=== PATIENT | female | born 1945 ===

== ENCOUNTER 2017-05-20 00:10 | Inpatient (IN) | payer MEDICAID ==
[2017-05-20] MEDS ORDERED: Morphine 4 MG/ML VIAL IV ONE (00:58)
--- NOTE | 2017-05-20 00:58 | C.PDOC ---
History Of Present Illness 71 year old female presents to the ED c/o sudden onset abdominal pain, vomit that started today at 19:00. Patient states she was feeling fine before and the pain suddenly came. Patient had an appendectomy performed in the past. Patient denies fever, chills, back pain, recent travel, sick contacts. Chief Complaint (Nursing): Abdominal Pain History Per: Patient History/Exam Limitations: no limitations Onset/Duration Of Symptoms: Days Current Symptoms Are (Timing): Still Present Severity: Moderate Location Of Pain/Discomfort: RUQ Radiation Of Pain To:: None Quality Of Discomfort: "Pain" Associated Symptoms: Vomiting Exacerbating Factors: None Alleviating Factors: None Recent travel outside of the [place]: No Additional History Per: Patient Abnormal Vaginal Bleeding: No Past Medical History Reviewed: Historical Data, Nursing Documentation, Vital Signs Vital Signs: Last Vital Signs Temp 99 F 05/20/17 02:50 Pulse 106 H 05/20/17 04:52 Resp 18 05/20/17 04:52 BP 113/61 05/20/17 04:52 Pulse Ox 98 05/20/17 04:52 - Medical History PMH: HTN, Hypercholesterolemia Surgical History: Appendectomy Family History: States: Unknown Family Hx - Social History Hx Alcohol Use: No Hx Substance Use: No Review Of Systems Constitutional: Negative for: Fever, Chills Cardiovascular: Negative for: Chest Pain Respiratory: Negative for: Cough, Shortness of Breath Gastrointestinal: Positive for: Vomiting, Abdominal Pain Skin: Negative for: Rash Neurological: Negative for: Weakness, Numbness Physical Exam - Physical Exam Appears: Non-toxic, No Acute Distress Skin: Normal Color, Warm, Dry Head: Atraumatic, Normacephalic Eye(s): bilateral: Normal Inspection Nose: No Discharge Oral Mucosa: Moist Neck: Normal ROM, Supple Chest: Symmetrical Cardiovascular: Rhythm Regular, No Murmur Respiratory: Normal Breath Sounds, No Rales, No Rhonchi, No Wheezing Gastrointestinal/Abdominal: Soft, Tenderness (RUQ, + Kerr's), No Guarding, No Rebound Extremity: Normal ROM, No Tenderness, No Swelling Neurological/Psych: Oriented x3 Gait: Steady ED Course And Treatment - Laboratory Results Result Diagrams: 05/20/17 01:01 05/20/17 01:01 O2 Sat by Pulse Oximetry: 100 (On RA) Pulse Ox Interpretation: Normal - CT Scan/US Abdomen US Other Rad Studies (CT/US): Read By Radiologist, Radiology Report Reviewed CT/US Interpretation: EXAM: US Abdomen Limited, Right Upper Quadrant. CLINICAL HISTORY: 71 years, female; Pain; Abdominal pain; Generalized; Prior surgery; Surgery date: 6+ months;. Surgery type: Appendix removed; Additional info: Ruq. TECHNIQUE: Real-time ultrasound of the right upper quadrant with image documentation. COMPARISON: No relevant prior studies available. FINDINGS: Liver: Enlarged liver measuring up to 22.7 cm. Echogenicity of the liver is increased suggestive of. hepatic steatosis. No intrahepatic bile duct dilation. Gallbladder: Gallbladder mildly distended. No gallstones or biliary sludge. Gallbladder wall. measures a normal 0.27 cm in thickness. Sonographic Kerr's sign negative. Common bile duct: Common bile duct measures up to 0.68 cm likely normal for patient age. No. stones. Pancreas: Visualized pancreas unremarkable. Prominent pancreatic duct measuring up to 0.33. cm. Right kidney : Right kidney measures 11.4 x 4.0 x 6.3 cm. No stones. No hydronephrosis. IMPRESSION: 1. No acute findings. 2. Hepatomegaly with increased echogenicity of the liver suggestive of hepatic steatosis. 3. Mild gallbladder distention without evidence of gallstones or biliary sludge. 4. Prominent pancreatic duct. Thank you for allowing us to participate in the care of your patient. Dictated and Authenticated by: Nimo Laughlin MD. 05/20/2017 3:31 AM Eastern Time ([place] & [place]) CT abd/pelvis Other Rad Studies (CT/US): Read By Radiologist, Radiology Report Reviewed CT/US Interpretation: EXAM: CT Abdomen and Pelvis With Intravenous Contrast. EXAM DATE/TIME: 05/20/2017 2:45 AM. CLINICAL HISTORY: 71 years old, female; Pain; Abdominal pain. TECHNIQUE: Axial computed tomography images of the abdomen and pelvis with intravenous contrast. All CT. scans at this facility use one or more dose reduction techniques, viz.: automated exposure control;. ma/kV adjustment per patient size (including targeted exams where dose is matched to indication; i.e. head); or iterative reconstruction technique. Coronal and sagittal reformatted images were created and reviewed. CONTRAST: 100 mL of administered intravenously. COMPARISON: Prior right upper quadrant ultrasound of 2017-05-20 02:14. FINDINGS: LIMITATIONS: Mild streak/motion artifact. LOWER THORAX: Small hiatal hernia. ABDOMEN:LIVER: Fatty infiltration of the liver. 1.7 cm low density liver lesion, most likely a cyst. Hepatomegaly, with the liver measuring 25 cm in length. GALLBLADDER AND BILE DUCTS: No CT evidence of acute cholecystitis. No evidence of. significant biliary ductal dilatation for age. PANCREAS: No CT evidence of acute pancreatitis. SPLEEN: No acute abnormality of the spleen identified. ADRENALS : No acute abnormality of the adrenal glands identified. KIDNEYS AND URETERS: No acute abnormality of the kidneys identified. No evidence of. significant hydrouereteronephrosis. STOMACH AND BOWEL: No acute abnormality of the stomach , small bowel or colon identified. No. evidence of bowel obstruction. APPENDIX : Normal appendix is not seen, however, there are no significant inflammatory changes. visualized in the expected location of the appendix to suggest appendicitis. PELVIS: BLADDER: No acute abnormality of the bladder identified. REPRODUCTIVE:No acute abnormality of the reproductive organs is seen. No evidence of large. adnexal masses. ABDOMEN and PELVIS: INTRAPERITONEAL SPACE: No evidence of free intraperitoneal air or fluid. BONES/ JOINTS: Osteoarthritic changes in the hips bilaterally, moderate to severe on the left. Uterus is surgically absent. SOFT TISSUES: No acute abnormality of the visualized soft tissues is seen. VASCULATURE: No evidence of abdominal aortic aneurysm. No evidence of periaortic. hemorrhage. LYMPH NODES: No evidence of diffuse lymphadenopathy. IMPRESSION: - No evidence of significant acute process. Appendix is not seen, however. - Enlarged, fatty liver. - See above for remaining findings. Thank you for allowing us to participate in the care of your patient. Dictated and Authenticated by: Ethel Yang MD. 05/20 4:04 AM Eastern Time ([place] & [place]) Medical Decision Making Medical Decision Making: Impression: cholelithiasis Plan: * Labs * Dilaudid 1 mg IVP * Morphine 4 mg IVP * Abdomen US Disposition - Disposition Disposition: HOSPITALIZED Disposition Time: 05:00 Condition: FAIR Forms: [facility] (Guinean) - Clinical Impression Clinical Impression: Abdominal pain - Scribe Statement The provider has reviewed the documentation as recorded by the Scribe Aubrey Berrios All medical record entries made by the Scribe were at my direction and personally dictated by me. I have reviewed the chart and agree that the record accurately reflects my personal performance of the history, physical exam, medical decision making, and the department course for this patient. I have also personally directed, reviewed, and agree with the discharge instructions and disposition.
[2017-05-20] MEDS ORDERED: Morphine 4 MG/ML VIAL ONE (01:03)
[2017-05-20 01:05] LABS: BASO % 0.1 % (0.0-2.0); EOS # 0.2 K/uL (0.0-0.7); HEMOGLOBIN 14.5 g/dL (11.0-16.0); LYMPH # 1.6 K/uL (1.0-4.3); LYMPH % 6.8 % (20.0-40.0); MEAN CELL VOLUME 90.9 fL (81.0-99.0); MEAN CORPUSCULAR HEMOGLOBIN 30.1 pg (27.0-31.0); MEAN CORPUSCULAR HGB CONC 33.1 g/dL (33.0-37.0); MEAN PLATELET VOLUME 12.6 fL (7.2-11.7); MONO # 1.3 K/uL (0.0-0.8); MONO % 5.3 % (0.0-10.0); NEUT # 20.5 K/uL (1.8-7.0); NEUT % 86.8 % (50.0-75.0); PLATELET COUNT 245 K/uL (130-400); RED CELL DISTRIBUTION WIDTH 13.4 % (11.5-14.5); WHITE BLOOD COUNT 23.6 K/uL (4.8-10.8)
[2017-05-20 01:13] LABS: INR 0.9; PROTHROMBIN TIME 10.5 SECONDS (9.7-12.2)
[2017-05-20] MEDS ORDERED: HYDROmorphone 1 mg/ml ISec IVP STA (01:17)
[2017-05-20] MEDS ORDERED: HYDROmorphone 1 mg/ml ISec ONE (01:23)
[2017-05-20 01:37] LABS: ALB/GLOB RATIO 1.2 (1.0-2.1); ALBUMIN 4.7 g/dL (3.5-5.0); ALT/SGPT 69 U/L (9-52); AST/SGOT 54 U/L (14-36); BLOOD UREA NITROGEN 20 mg/dL (7-17); CALCIUM 10.2 mg/dl (8.6-10.4); GFR AFRICAN-AMERICAN > 60; GFR NON-AFRICAN AMERICAN > 60; LIPASE 108 U/L (23-300)
[2017-05-20 01:38] LABS: BANDS 7 % (0-2); LYMPHOCYTE 5 % (20-40); MONOCYTE 4 % (0-10); NEUTROPHIL 84 % (50-75); PLATELET ESTIMATE NORMAL (NORMAL); TOTAL CELLS COUNTED 100
[2017-05-20] MEDS ORDERED: Piperacillin/Tazobact 3.375 GM in Sodium Chloride 100 ML IVPB STA (02:00)
[2017-05-20] MEDS ORDERED: Piperacill/Tazo 3.375gm in Dex 3.375 GM/50 ML BAG IVPB STA (02:12)
[2017-05-20] MEDS ORDERED: Iodixanol 320 MG/ML 100 ML BOTTLE IV ONE (02:53)
--- NOTE | 2017-05-20 04:05 | CT ---
EXAM: CT Abdomen and Pelvis With Intravenous Contrast EXAM DATE/TIME: 05/20/2017 2:45 AM CLINICAL HISTORY: 71 years old, female; Pain; Abdominal pain TECHNIQUE: Axial computed tomography images of the abdomen and pelvis with intravenous contrast. All CT scans at this facility use one or more dose reduction techniques, viz.: automated exposure control; ma/kV adjustment per patient size (including targeted exams where dose is matched to indication; i.e. head); or iterative reconstruction technique. Coronal and sagittal reformatted images were created and reviewed. CONTRAST: 100 mL of [id number] administered intravenously. COMPARISON: Prior right upper quadrant ultrasound of 2017-05-20 02:14 FINDINGS: LIMITATIONS: Mild streak/motion artifact. LOWER THORAX: Small hiatal hernia. ABDOMEN: LIVER: Fatty infiltration of the liver. 1.7 cm low density liver lesion, most likely a cyst. Hepatomegaly, with the liver measuring 25 cm in length. GALLBLADDER AND BILE DUCTS: No CT evidence of acute cholecystitis. No evidence of significant biliary ductal dilatation for age. PANCREAS: No CT evidence of acute pancreatitis. SPLEEN: No acute abnormality of the spleen identified. ADRENALS: No acute abnormality of the adrenal glands identified. KIDNEYS AND URETERS: No acute abnormality of the kidneys identified. No evidence of significant hydrouereteronephrosis. STOMACH AND BOWEL: No acute abnormality of the stomach, small bowel or colon identified. No evidence of bowel obstruction. APPENDIX: Normal appendix is not seen, however, there are no significant inflammatory changes visualized in the expected location of the appendix to suggest appendicitis. PELVIS: BLADDER: No acute abnormality of the bladder identified. REPRODUCTIVE:No acute abnormality of the reproductive organs is seen. No evidence of large adnexal masses. ABDOMEN and PELVIS: INTRAPERITONEAL SPACE: No evidence of free intraperitoneal air or fluid. BONES/JOINTS: Osteoarthritic changes in the hips bilaterally, moderate to severe on the left. Uterus is surgically absent. SOFT TISSUES: No acute abnormality of the visualized soft tissues is seen. VASCULATURE: No evidence of abdominal aortic aneurysm. No evidence of periaortic hemorrhage. LYMPH NODES: No evidence of diffuse lymphadenopathy. IMPRESSION: - No evidence of significant acute process. Appendix is not seen, however. - Enlarged, fatty liver. - See above for remaining findings.
[2017-05-20] MEDS ORDERED: Lactated Ringer's 1,000 ML IV ONE (07:16)
--- NOTE | 2017-05-20 07:24 | CP.PCM.CON ---
<KwameLiss - Last Filed: 05/20/17 07:18> History of Present Illness - History of Present Illness History of Present Illness: Surgery Consult: Dr. Bridges Pt is a 71F with PMHx significant for HTN who presented to with complaints of abdominal pain accompanied by N/V. Pt states that she started having abdominal pain yesterday with several episodes of NBNB vomiting & diarrhea. Abdominal pain is mostly epigastric and worse from the pressure due to the vomiting. She denies having had an episode like this in the past. She denies any sick contacts or eating out. Denies fevers, chills, chest pain or SOB. A CT abdomen/pelvis was done in the ER and shows no significant findings. Surgery called to evaluate for abdominal pain. PMH: HTN PSH: appendectomy, hysterectomy ALL: NKDA Social: denies smoking/eTOH Review of Systems - Review of Systems All systems: reviewed and no additional remarkable complaints except (as per HPI ) Past Patient History - Past Social History Smoking Status: Light Smoker < 10 Cigarettes Daily - CARDIAC Hx Hypercholesterolemia: Yes Hx Hypertension: Yes - PSYCHIATRIC Hx Substance Use: No - SURGICAL HISTORY Hx Appendectomy: Yes Meds Allergies/Adverse Reactions: Allergies Allergy/AdvReac Type Severity Reaction Status Date / Time No Known Allergies Allergy Verified 05/20/17 00:16 - Medications Medications: Current Medications Lactated Ringer's (Lactated Ringer's) 1,000 mls @ 100 mls/hr IV .Q10H BASHIR Lactated Ringer's (Lactated Ringer's) 1,000 mls @ 500 mls/hr IV .Q2H ONE Stop: 05/20/17 09:15 Morphine Sulfate (Morphine) 2 mg IVP Q4 PRN PRN Reason: Pain, moderate (4-7) Physical Exam - Constitutional Appears: No Acute Distress - Head Exam Head Exam: ATRAUMATIC, NORMOCEPHALIC - Eye Exam Eye Exam: Normal appearance - Respiratory Exam Respiratory Exam: NORMAL BREATHING PATTERN - Cardiovascular Exam Cardiovascular Exam: RRR - GI/Abdominal Exam GI & Abdominal Exam: Soft, Tenderness (epigastric ). absent: Distended, Guarding, Rebound - Neurological Exam Neurological exam: Alert, Oriented x3 - Skin Skin Exam: Dry, Warm Results - Vital Signs Recent Vital Signs: Last Vital Signs Temp 99.3 F 05/20/17 06:44 Pulse 89 05/20/17 06:44 Resp 18 05/20/17 06:44 BP 129/75 05/20/17 06:44 Pulse Ox 98 05/20/17 06:44 - Labs Result Diagrams: 05/20/17 01:01 05/20/17 01:01 Labs: Laboratory Results - last 24 hr 05/20/17 05/20/17 05/20/17 01:01 01:01 01:01 WBC 23.6 H RBC 4.80 Hgb 14.5 Hct 43.6 MCV 90.9 MCH 30.1 MCHC 33.1 RDW 13.4 Plt Count 245 MPV 12.6 H Neut % (Auto) 86.8 H Lymph % (Auto) 6.8 L [place] % (Auto) 5.3 Eos % (Auto) 1.0 Baso % (Auto) 0.1 Neut # (Auto) 20.5 H Lymph # (Auto) 1.6 [place] # (Auto) 1.3 H Eos # (Auto) 0.2 Baso # (Auto) 0.0 Neutrophils % (Manual) 84 H Band Neutrophils % 7 H Lymphocytes % (Manual) 5 L Monocytes % (Manual) 4 Platelet Estimate Normal PT 10.5 INR 0.9 APTT 25 Sodium 144 Potassium 3.6 Chloride 102 Carbon Dioxide 21 L Anion Gap 24 H BUN 20 H Creatinine 0.9 Est GFR ( Amer) > 60 Est GFR (Non-Af Amer) > 60 Random Glucose 222 H Calcium 10.2 Total Bilirubin 0.6 AST 54 H ALT 69 H Alkaline Phosphatase 121 Total Protein 8.8 H Albumin 4.7 Globulin 4.0 H Albumin/Globulin Ratio 1.2 Lipase 108 - Imaging and Cardiology CT scan - abdomen Status: Image reviewed by me, Report reviewed by me Assessment & Plan - Assessment and Plan (Free Text) Assessment: 71F with abdominal pain Plan: - repeat labs this AM - IVF hydration - Start CLD and monitor tolerance - no surgical intervention at this time - d/w Dr. Yuliana Puente, PGY-3 <Tom Bridges - Last Filed: 05/21/17 21:00> Meds - Medications Medications: Current Medications Enoxaparin Sodium (Lovenox) 40 mg SC DAILY BASHIR Last Admin: 05/21/17 09:21 Dose: 40 mg Lactated Ringer's (Lactated Ringer's) 1,000 mls @ 100 mls/hr IV .Q10H [facility] Last Admin: 05/21/17 06:33 Dose: 100 mls/hr Piperacillin Sod/Tazobactam (Sod 3.375 gm/ Sodium Chloride) 100 mls @ 200 mls/ hr IVPB Q8H BASHIR PRN Reason: Protocol Last Admin: 05/21/17 17:49 Dose: 200 mls/hr Morphine Sulfate (Morphine) 2 mg IVP Q4 PRN PRN Reason: Pain, moderate (4-7) Last Admin: 05/21/17 06:31 Dose: 2 mg Ondansetron HCl (Zofran Inj) 4 mg IVP Q6H PRN PRN Reason: Nausea/Vomiting Pantoprazole Sodium (Protonix Ec Tab) 40 mg PO DAILY [facility] Last Admin: 05/21/17 09:21 Dose: 40 mg Pneumococcal Polyvalent Vaccine (Pneumovax 23 Vaccine) 0.5 ml IM .ONCE ONE Stop: 05/23/17 10:01 Rosuvastatin Calcium (Crestor) 2.5 mg PO [facility] Results - Vital Signs Recent Vital Signs: Last Vital Signs Temp 98.1 F 05/21/17 15:02 Pulse 65 05/21/17 15:02 Resp 20 05/21/17 15:02 BP 103/65 05/21/17 15:02 Pulse Ox 97 05/21/17 15:02 - Labs Result Diagrams: 05/21/17 08:25 05/21/17 08:25 Labs: Laboratory Results - last 24 hr 05/20/17 05/20/17 05/20/17 09:22 22:10 22:10 WBC 10.1 RBC 4.09 Hgb 12.5 Hct 36.9 MCV 90.2 MCH 30.4 MCHC 33.7 RDW 13.6 Plt Count 195 MPV 11.9 H Neut % (Auto) 70.0 Lymph % (Auto) 21.6 [place] % (Auto) 6.7 Eos % (Auto) 1.4 Baso % (Auto) 0.3 Neut # (Auto) 7.1 H Lymph # (Auto) 2.2 [place] # (Auto) 0.7 Eos # (Auto) 0.1 Baso # (Auto) 0.0 Sodium Potassium Chloride Carbon Dioxide Anion Gap BUN Creatinine Est GFR ( Amer) Est GFR (Non-Af Amer) Random Glucose Calcium Total Bilirubin AST ALT Alkaline Phosphatase Total Protein Albumin Globulin Albumin/Globulin Ratio Urine Color Colorless Urine Clarity Clear Urine pH 6.0 Ur Specific [place] 1.008 Urine Protein Negative Urine Glucose (UA) Normal Urine Ketones Negative Urine Blood 1+ H Urine Nitrate Negative Urine Bilirubin Negative Urine Urobilinogen Normal Ur Leukocyte Esterase Neg Urine WBC (Auto) < 1 Urine RBC (Auto) < 1 Ur Squamous Epith Cells 1 C. difficile Ag & Toxin Negative 05/20/17 05/21/17 05/21/17 22:10 08:25 08:25 WBC 9.7 RBC 3.97 Hgb 12.1 Hct 36.3 MCV 91.4 MCH 30.5 MCHC 33.4 RDW 13.7 Plt Count 193 MPV 12.6 H Neut % (Auto) 64.3 Lymph % (Auto) 25.7 [place] % (Auto) 6.6 Eos % (Auto) 3.2 Baso % (Auto) 0.2 Neut # (Auto) 6.2 Lymph # (Auto) 2.5 [place] # (Auto) 0.6 Eos # (Auto) 0.3 Baso # (Auto) 0.0 Sodium 142 140 Potassium 3.6 3.3 L Chloride 101 100 Carbon Dioxide 28 27 Anion Gap 16 16 BUN 11 9 Creatinine 0.7 0.7 Est GFR ( Amer) > 60 > 60 Est GFR (Non-Af Amer) > 60 > 60 Random Glucose 143 H 150 H Calcium 8.7 8.2 L Total Bilirubin 0.7 0.3 AST 43 H 49 H ALT 65 H 55 H Alkaline Phosphatase 84 71 Total Protein 7.4 6.7 Albumin 4.0 3.5 Globulin 3.4 3.2 Albumin/Globulin Ratio 1.2 1.1 Urine Color Urine Clarity Urine pH Ur Specific [place] Urine Protein Urine Glucose (UA) Urine Ketones Urine Blood Urine Nitrate Urine Bilirubin Urine Urobilinogen Ur Leukocyte Esterase Urine WBC (Auto) Urine RBC (Auto) Ur Squamous Epith Cells C. difficile Ag & Toxin Attending/Attestation - Attestation I have personally seen and examined this patient.: Yes I have fully participated in the care of the patient.: Yes I have reviewed all pertinent clinical information: Yes Notes (Text): Pt was seen and examined at bedside Agree with above note and assessment Pt with Gastroenteritis and leucocytosis Abdomen: soft, tender in upper abdomen, no peritoneal signs Labs and radiology reviewed Ass: Gastroenteritis Plan: IV antibiotics clear liquid diet Repeat CBC in am We will f.u Plan d.w pt in detail Risk and benefit explained in detail.
[2017-05-20 07:40] VITALS: RESP 20
--- NOTE | 2017-05-20 09:28 | CP.PCM.CON ---
<Christelle Swain - Last Filed: 05/20/17 09:58> History of Present Illness - History of Present Illness History of Present Illness: Gastroenterology Consult Note Ms. Brooks is a 71 Female with PMHx of HTN presents to the ED last night due to sharp abdominal pain, nausea, vomiting, and diarrhea that started 7PM last night. Patient reports eating a home cooked meal early afternoon. Her symptoms started several hours after. She felt immense, sharp abdominal pain, accompanied with nausea, nonbloody vomiting that became bilious after several episodes, and nonbloody diarrhea. The vomiting and diarrhea are still persistent. Denied any sick contacts, recent travel. Recently treated with PO abx for 5 day course for UTI by her PMD. Colonoscopy performed in 2017, shortly after she had a surgery to remove a colonic polyp. Patient reports no abnormal findings. Daughter will bring in reports. 12 point ROS unremarkable unless otherwise noted above. PMHx: HTN PSHx: Appendectomy, Hysterectomy, Abdominal surgery in [facility] in 2017 to remove a colonic polyp. All: NKDA SHx: Smokes 2-5 cigarretes a day for the past years, admits to social ETOH use, and denied any illicit drug use FHx: Unremarkable for any GI diseases or malignancies Past Patient History - Past Social History Smoking Status: Light Smoker < 10 Cigarettes Daily - CARDIAC Hx Hypercholesterolemia: Yes Hx Hypertension: Yes - PSYCHIATRIC Hx Substance Use: No - SURGICAL HISTORY Hx Appendectomy: Yes Meds Allergies/Adverse Reactions: Allergies Allergy/AdvReac Type Severity Reaction Status Date / Time No Known Allergies Allergy Verified 05/20/17 00:16 - Medications Medications: Current Medications Enoxaparin Sodium (Lovenox) 40 mg SC DAILY [facility] Lactated Ringer's (Lactated Ringer's) 1,000 mls @ 100 mls/hr IV .Q10H [facility] Piperacillin Sod/Tazobactam (Sod 3.375 gm/ Sodium Chloride) 100 mls @ 200 mls/ hr IVPB Q8H [facility] PRN Reason: Protocol Morphine Sulfate (Morphine) 2 mg IVP Q4 PRN PRN Reason: Pain, moderate (4-7) Pantoprazole Sodium (Protonix Ec Tab) 40 mg PO DAILY [facility] Physical Exam - Constitutional Appears: No Acute Distress - Head Exam Head Exam: NORMAL INSPECTION, NORMOCEPHALIC - Eye Exam Eye Exam: EOMI, Normal appearance, PERRL Pupil Exam: NORMAL ACCOMODATION - ENT Exam ENT Exam: Mucous Membranes Moist, Normal Exam - Respiratory Exam Respiratory Exam: Clear to Auscultation Bilateral, NORMAL BREATHING PATTERN - Cardiovascular Exam Cardiovascular Exam: REGULAR RHYTHM - GI/Abdominal Exam GI & Abdominal Exam: Normal Bowel Sounds, Soft, Tenderness. absent: Distended, Organomegaly Additional comments: TTP epigastric, RLQ - Rectal Exam Rectal Exam: Deferred - Extremities Exam Extremities exam: Positive for: normal inspection, pedal pulses present. Negative for: pedal edema, tenderness - Neurological Exam Neurological exam: Alert, Oriented x3 - Psychiatric Exam Psychiatric exam: Normal Affect, Normal Mood - Skin Skin Exam: Dry, Intact, Normal Color, Warm Results - Vital Signs Recent Vital Signs: Last Vital Signs Temp 98.9 F 05/20/17 07:39 Pulse 105 H 05/20/17 07:39 Resp 20 05/20/17 07:39 BP 115/69 05/20/17 07:39 Pulse Ox 95 05/20/17 07:39 - Labs Result Diagrams: 05/20/17 01:01 05/20/17 01:01 Labs: Laboratory Results - last 24 hr 05/20/17 05/20/17 05/20/17 01:01 01:01 01:01 WBC 23.6 H RBC 4.80 Hgb 14.5 Hct 43.6 MCV 90.9 MCH 30.1 MCHC 33.1 RDW 13.4 Plt Count 245 MPV 12.6 H Neut % (Auto) 86.8 H Lymph % (Auto) 6.8 L [place] % (Auto) 5.3 Eos % (Auto) 1.0 Baso % (Auto) 0.1 Neut # (Auto) 20.5 H Lymph # (Auto) 1.6 [place] # (Auto) 1.3 H Eos # (Auto) 0.2 Baso # (Auto) 0.0 Neutrophils % (Manual) 84 H Band Neutrophils % 7 H Lymphocytes % (Manual) 5 L Monocytes % (Manual) 4 Platelet Estimate Normal PT 10.5 INR 0.9 APTT 25 Sodium 144 Potassium 3.6 Chloride 102 Carbon Dioxide 21 L Anion Gap 24 H BUN 20 H Creatinine 0.9 Est GFR ( Amer) > 60 Est GFR (Non-Af Amer) > 60 Random Glucose 222 H Calcium 10.2 Total Bilirubin 0.6 AST 54 H ALT 69 H Alkaline Phosphatase 121 Total Protein 8.8 H Albumin 4.7 Globulin 4.0 H Albumin/Globulin Ratio 1.2 Lipase 108 Assessment & Plan - Assessment and Plan (Free Text) Assessment: Ms. Brooks is a 71 Female with PMHx of HTN presents to the ED last night due to sharp abdominal pain, nausea, vomiting, and diarrhea that started 7PM last night. Recently treated with PO abx for 5 day course for UTI by her PMD. Colonoscopy performed in 2017, shortly after she had a surgery to remove a colonic polyp. Patient reports no abnormal findings. Abdominal pain Diarrhea - viral versus infectious versus secondary to recent antibiotic use HTN Plan: - Started on FLD, will advance as tolerated - No evidence of colitis noted on CT Scan; follow up abdominal US - Continue IVF, Abx, and pain control - Follow up stool studies - In light of recent abx treatment for UTI, follow up urine culture - Will continue to follow patient's clinical course DW Dr. Monroy, Christelle Swain DO, PGY-1 <Андрей Monroy - Last Filed: 05/20/17 12:19> Meds - Medications Medications: Current Medications Enoxaparin Sodium (Lovenox) 40 mg SC DAILY [facility] Lactated Ringer's (Lactated Ringer's) 1,000 mls @ 100 mls/hr IV .Q10H [facility] Last Admin: 05/20/17 10:04 Dose: 100 mls/hr Piperacillin Sod/Tazobactam (Sod 3.375 gm/ Sodium Chloride) 100 mls @ 200 mls/ hr IVPB Q8H [facility] PRN Reason: Protocol Last Admin: 05/20/17 10:04 Dose: 200 mls/hr Morphine Sulfate (Morphine) 2 mg IVP Q4 PRN PRN Reason: Pain, moderate (4-7) Last Admin: 05/20/17 11:23 Dose: 2 mg Pantoprazole Sodium (Protonix Ec Tab) 40 mg PO DAILY [facility] Last Admin: 05/20/17 11:23 Dose: 40 mg Results - Vital Signs Recent Vital Signs: Last Vital Signs Temp 98.9 F 05/20/17 07:39 Pulse 105 H 05/20/17 07:39 Resp 20 05/20/17 07:39 BP 115/69 05/20/17 07:39 Pulse Ox 95 03/20/18 07:39 - Labs Result Diagrams: 05/20/17 01:01 05/20/17 01:01 Labs: Laboratory Results - last 24 hr 05/20/17 05/20/17 05/20/17 01:01 01:01 01:01 WBC 23.6 H RBC 4.80 Hgb 14.5 Hct 43.6 MCV 90.9 MCH 30.1 MCHC 33.1 RDW 13.4 Plt Count 245 MPV 12.6 H Neut % (Auto) 86.8 H Lymph % (Auto) 6.8 L [place] % (Auto) 5.3 Eos % (Auto) 1.0 Baso % (Auto) 0.1 Neut # (Auto) 20.5 H Lymph # (Auto) 1.6 [place] # (Auto) 1.3 H Eos # (Auto) 0.2 Baso # (Auto) 0.0 Neutrophils % (Manual) 84 H Band Neutrophils % 7 H Lymphocytes % (Manual) 5 L Monocytes % (Manual) 4 Platelet Estimate Normal PT 10.5 INR 0.9 APTT 25 Sodium 144 Potassium 3.6 Chloride 102 Carbon Dioxide 21 L Anion Gap 24 H BUN 20 H Creatinine 0.9 Est GFR ( Amer) > 60 Est GFR (Non-Af Amer) > 60 Random Glucose 222 H Calcium 10.2 Total Bilirubin 0.6 AST 54 H ALT 69 H Alkaline Phosphatase 121 Total Protein 8.8 H Albumin 4.7 Globulin 4.0 H Albumin/Globulin Ratio 1.2 Lipase 108 Attending/Attestation - Attestation I have personally seen and examined this patient.: Yes I have fully participated in the care of the patient.: Yes I have reviewed all pertinent clinical information: Yes Notes (Text): 05/20/17 12:11 I have seen and examined patient with GI fellow and medical records assistant. Agree with above documentation with the following additions. In brief, this is a 71 year old female with history of HTN, obesity who presents to hospital with complaint of sudden onset abdominal pain which began yesterday evening. She describes eating meal at home consisting of beef followed by beginning of abdominal pain at 9 pm. She describes a sharp epigastric, 9/10 intensity pain that radiates to back and is associated with multiple episodes of non-bloody emesis and diarrhea. She denies recent travel, sick contacts, fever/chills. She does report recent antibiotic use for UTI last week. She apparently had a colonoscopy performed in 2017 in [place] with subsequent bowel resection for "cystic" lesion. She otherwise denies similar prior episodes, weight loss, or rectal bleeding. Review of vitals from today shows tachycardia. HTN Obesity Abdominal pain, diarrhea - leukocytosis, gastroenteritis CT imaging reviewed by me showing hepatic cyst, fatty liver, otherwise no significant bowel abnormality - Liquid diet as tolerated - Continue with antibiotic therapy - Follow up blood culture results - Obtain stool studies (culture, O/P, c-difficile given recent antibiotic use) - Continue with supportive care, IVF hydration, anti-emetic therapy PRN - Obtain urine culture - If patient symptoms persist despite conservative measures, would consider repeat imaging with PO contrast for more optimal bowel evaluation. Will continue to monitor clinical course.
--- NOTE | 2017-05-20 09:59 | US ---
HISTORY: RUQ COMPARISON: None. TECHNIQUE: Sonographic evaluation of the right upper quadrant of the abdomen. FINDINGS: LIVER: Measures 22.7 cm in length. Diffusely increased echogenicity of the liver parenchyma. Consistent with diffuse fatty infiltration. There is no focal mass. The contour is smooth. There is no intrahepatic biliary ductal dilatation. GALLBLADDER: Unremarkable. No gallstones. COMMON BILE DUCT: Measures 7 mm. No stones. No dilatation. PANCREAS: Unremarkable as visualized. No mass. No ductal dilatation. RIGHT KIDNEY: Measures 11.4 cm in length. Normal echogenicity. No calculus, mass, or hydronephrosis. AORTA: No aneurysmal dilatation. IVC: Unremarkable. OTHER FINDINGS: None . IMPRESSION: Hepatomegaly with diffuse fatty infiltration. No evidence of cholelithiasis or cholecystitis. No biliary obstruction.
[2017-05-20] MEDS ORDERED: Enoxaparin 40 mg Syringe SC SCH (10:00)
[2017-05-20] MEDS: Lactated Ringer's 1,000 ML IV SCH ×2 (10:04→17:30)
[2017-05-20] MEDS: Piperacillin/Tazobact 3.375 GM in Sodium Chloride 100 ML IVPB SCH ×3 (10:04→23:52)
[2017-05-20] MEDS: Pantoprazole 40 mg EC Tab PO SCH (11:23)
[2017-05-20 12:12] LABS: MEAN CELL VOLUME 90.6 fL (81.0-99.0); MEAN CORPUSCULAR HEMOGLOBIN 30.4 pg (27.0-31.0); MEAN CORPUSCULAR HGB CONC 33.5 g/dL (33.0-37.0); MEAN PLATELET VOLUME 12.7 fL (7.2-11.7); RBC 4.02 Mil/uL (3.80-5.20); RED CELL DISTRIBUTION WIDTH 13.5 % (11.5-14.5); WHITE BLOOD COUNT 11.9 K/uL (4.8-10.8)
[2017-05-20 12:18] LABS: HEMOGLOBIN 12.2 g/dL (11.0-16.0)
[2017-05-20 12:37] LABS: ALB/GLOB RATIO 1.2 (1.0-2.1); ALBUMIN 3.9 g/dL (3.5-5.0); ALT/SGPT 56 U/L (9-52); AST/SGOT 48 U/L (14-36); BLOOD UREA NITROGEN 19 mg/dL (7-17); CALCIUM 8.7 mg/dl (8.6-10.4); GFR AFRICAN-AMERICAN > 60; GFR NON-AFRICAN AMERICAN > 60
--- NOTE | 2017-05-20 13:25 | CP.PCM.HP ---
Present on Admission - Present on Admission Any Indicators Present on Admission: No Past Patient History - Past Social History Smoking Status: Light Smoker < 10 Cigarettes Daily - CARDIAC Hx Hypercholesterolemia: Yes Hx Hypertension: Yes - PSYCHIATRIC Hx Substance Use: No - SURGICAL HISTORY Hx Appendectomy: Yes Meds Allergies/Adverse Reactions: Allergies Allergy/AdvReac Type Severity Reaction Status Date / Time No Known Allergies Allergy Verified 05/20/17 00:16 Physical Exam - Constitutional Appears: Well - Head Exam Head Exam: ATRAUMATIC, NORMAL INSPECTION, NORMOCEPHALIC - Eye Exam Eye Exam: EOMI, Normal appearance, PERRL Pupil Exam: NORMAL ACCOMODATION, PERRL - ENT Exam ENT Exam: Mucous Membranes Moist, Normal Exam - Neck Exam Neck exam: Positive for: Normal Inspection - Respiratory Exam Respiratory Exam: Decreased Breath Sounds - Cardiovascular Exam Cardiovascular Exam: REGULAR RHYTHM, +S1, +S2 - GI/Abdominal Exam GI & Abdominal Exam: Diminished Bowel Sounds, Soft - Rectal Exam Rectal Exam: Deferred Results - Vital Signs Recent Vital Signs: Last Vital Signs Temp 98.9 F 05/20/17 07:39 Pulse 105 H 05/20/17 07:39 Resp 20 05/20/17 07:39 BP 115/69 05/20/17 07:39 Pulse Ox 95 05/20/17 07:39 - Labs Result Diagrams: 05/20/17 12:05 05/20/17 12:00 Labs: Laboratory Results - last 24 hr 05/20/17 05/20/17 05/20/17 01:01 01:01 01:01 WBC 23.6 H RBC 4.80 Hgb 14.5 Hct 43.6 MCV 90.9 MCH 30.1 MCHC 33.1 RDW 13.4 Plt Count 245 MPV 12.6 H Neut % (Auto) 86.8 H Lymph % (Auto) 6.8 L [place] % (Auto) 5.3 Eos % (Auto) 1.0 Baso % (Auto) 0.1 Neut # (Auto) 20.5 H Lymph # (Auto) 1.6 [place] # (Auto) 1.3 H Eos # (Auto) 0.2 Baso # (Auto) 0.0 Neutrophils % (Manual) 84 H Band Neutrophils % 7 H Lymphocytes % (Manual) 5 L Monocytes % (Manual) 4 Platelet Estimate Normal PT 10.5 INR 0.9 APTT 25 Sodium 144 Potassium 3.6 Chloride 102 Carbon Dioxide 21 L Anion Gap 24 H BUN 20 H Creatinine 0.9 Est GFR ( Amer) > 60 Est GFR (Non-Af Amer) > 60 Random Glucose 222 H Calcium 10.2 Total Bilirubin 0.6 AST 54 H ALT 69 H Alkaline Phosphatase 121 Total Protein 8.8 H Albumin 4.7 Globulin 4.0 H Albumin/Globulin Ratio 1.2 Lipase 108 05/20/17 05/20/17 12:00 12:05 WBC 11.9 H RBC 4.02 Hgb 12.2 D Hct 36.5 MCV 90.6 MCH 30.4 MCHC 33.5 RDW 13.5 Plt Count 208 MPV 12.7 H Neut % (Auto) Lymph % (Auto) [place] % (Auto) Eos % (Auto) Baso % (Auto) Neut # (Auto) Lymph # (Auto) [place] # (Auto) Eos # (Auto) Baso # (Auto) Neutrophils % (Manual) Band Neutrophils % Lymphocytes % (Manual) Monocytes % (Manual) Platelet Estimate PT INR APTT Sodium 137 Potassium 3.9 Chloride 98 Carbon Dioxide 24 Anion Gap 20 BUN 19 H Creatinine 0.7 Est GFR ( Amer) > 60 Est GFR (Non-Af Amer) > 60 Random Glucose 151 H Calcium 8.7 Total Bilirubin 0.7 AST 48 H ALT 56 H Alkaline Phosphatase 72 Total Protein 7.2 Albumin 3.9 Globulin 3.3 Albumin/Globulin Ratio 1.2 Lipase Assessment & Plan - Assessment and Plan (Free Text) Plan: Status post GI consult by Dr. Smith note Continue Zosyn Continue morphine Continue monitoring WBC as it is 23.6 today repeat CBC tomorrow morning Continue IV fluid Other as ordered
[2017-05-20 22:13] LABS: BASO % 0.3 % (0.0-2.0); EOS # 0.1 K/uL (0.0-0.7); EOS % 1.4 % (0.0-4.0); HEMOGLOBIN 12.5 g/dL (11.0-16.0); LYMPH # 2.2 K/uL (1.0-4.3); LYMPH % 21.6 % (20.0-40.0); MEAN CELL VOLUME 90.2 fL (81.0-99.0); MEAN CORPUSCULAR HEMOGLOBIN 30.4 pg (27.0-31.0); MEAN CORPUSCULAR HGB CONC 33.7 g/dL (33.0-37.0); MEAN PLATELET VOLUME 11.9 fL (7.2-11.7); MONO # 0.7 K/uL (0.0-0.8); MONO % 6.7 % (0.0-10.0); NEUT # 7.1 K/uL (1.8-7.0); NRBC % 0.1 % (0.0-2.0); RBC 4.09 Mil/uL (3.80-5.20); RED CELL DISTRIBUTION WIDTH 13.6 % (11.5-14.5); WHITE BLOOD COUNT 10.1 K/uL (4.8-10.8)
[2017-05-20 22:15] LABS: SQUAMOUS EPITHIAL 1 /hpf (0-5); URINE BILIRUBIN NEGATIVE (NEGATIVE); URINE BLOOD 1+ (NEGATIVE); URINE CLARITY Clear (Clear); URINE COLOR Colorless (YELLOW); URINE GLUCOSE (UA) NORMAL (Normal); URINE LEUKOCYTE ESTERASE NEG Leu/uL (Negative); URINE PROTEIN NEGATIVE (NEGATIVE); URINE UROBILINOGEN NORMAL mg/dL (0.2-1.0)
[2017-05-20 22:26] LABS: ALB/GLOB RATIO 1.2 (1.0-2.1); ALT/SGPT 65 U/L (9-52); AST/SGOT 43 U/L (14-36); BLOOD UREA NITROGEN 11 mg/dL (7-17); CALCIUM 8.7 mg/dl (8.6-10.4); GFR AFRICAN-AMERICAN > 60; GFR NON-AFRICAN AMERICAN > 60
[2017-05-21] MEDS: Lactated Ringer's 1,000 ML IV SCH ×2 (06:33→22:18)
[2017-05-21] MEDS: Piperacillin/Tazobact 3.375 GM in Sodium Chloride 100 ML IVPB SCH ×2 (08:30→17:49)
[2017-05-21 08:34] LABS: BASO % 0.2 % (0.0-2.0); EOS # 0.3 K/uL (0.0-0.7); EOS % 3.2 % (0.0-4.0); HEMOGLOBIN 12.1 g/dL (11.0-16.0); LYMPH # 2.5 K/uL (1.0-4.3); LYMPH % 25.7 % (20.0-40.0); MEAN CELL VOLUME 91.4 fL (81.0-99.0); MEAN CORPUSCULAR HEMOGLOBIN 30.5 pg (27.0-31.0); MEAN CORPUSCULAR HGB CONC 33.4 g/dL (33.0-37.0); MEAN PLATELET VOLUME 12.6 fL (7.2-11.7); MONO # 0.6 K/uL (0.0-0.8); MONO % 6.6 % (0.0-10.0); NEUT # 6.2 K/uL (1.8-7.0); NEUT % 64.3 % (50.0-75.0); RBC 3.97 Mil/uL (3.80-5.20); RED CELL DISTRIBUTION WIDTH 13.7 % (11.5-14.5); WHITE BLOOD COUNT 9.7 K/uL (4.8-10.8)
[2017-05-21 08:50] LABS: ALB/GLOB RATIO 1.1 (1.0-2.1); ALBUMIN 3.5 g/dL (3.5-5.0); ALT/SGPT 55 U/L (9-52); AST/SGOT 49 U/L (14-36); BLOOD UREA NITROGEN 9 mg/dL (7-17); CALCIUM 8.2 mg/dl (8.6-10.4); GFR AFRICAN-AMERICAN > 60; GFR NON-AFRICAN AMERICAN > 60
[2017-05-21] MEDS: Pantoprazole 40 mg EC Tab PO SCH (09:21)
[2017-05-21] MEDS: Enoxaparin 60 mg Syringe SC SCH (09:21)
[2017-05-21] MEDS ORDERED: Potassium Chloride 20 mEq/15 ml LIQ UD PO ONE (10:00)
--- NOTE | 2017-05-21 10:22 | CP.PCM.PN ---
<Tk Orr - Last Filed: 05/21/17 17:12> Subjective - Date & Time of Evaluation Date of Evaluation: 05/21/17 Time of Evaluation: 10:20 - Subjective Subjective: PGY-[address] Stark's service: Pt seen and examined at bedside. Nursing reports no acute events overnight. Patient admits continued RUQ pain this AM. She describes pain as sharp sensation in RUQ, rating 6-8/10 on severity. She denies further episodes of vomiting this AM but has three additional episodes of diarrhea. Patient tolerating liquid diet this AM so far. Denies chest pain, SOB, headache. Objective - Vital Signs/Intake and Output Vital Signs (last 24 hours): Temp Pulse Resp BP Pulse Ox 99 F 92 H 20 113/64 96 05/21/17 08:08 05/21/17 08:08 05/21/17 08:08 05/21/17 08:08 05/21/17 08:08 Intake and Output: 05/21/17 05/21/17 06:59 18:59 Intake Total 800 Balance 800 - Medications Medications: Current Medications Enoxaparin Sodium (Lovenox) 40 mg SC DAILY [facility] Last Admin: 05/21/17 09:21 Dose: 40 mg Lactated Ringer's (Lactated Ringer's) 1,000 mls @ 100 mls/hr IV .Q10H [facility] Last Admin: 05/21/17 06:33 Dose: 100 mls/hr Piperacillin Sod/Tazobactam (Sod 3.375 gm/ Sodium Chloride) 100 mls @ 200 mls/ hr IVPB Q8H [facility] PRN Reason: Protocol Last Admin: 05/21/17 08:30 Dose: 200 mls/hr Morphine Sulfate (Morphine) 2 mg IVP Q4 PRN PRN Reason: Pain, moderate (4-7) Last Admin: 05/21/17 06:31 Dose: 2 mg Pantoprazole Sodium (Protonix Ec Tab) 40 mg PO DAILY [facility] Last Admin: 05/21/17 09:21 Dose: 40 mg - Labs Labs: 05/21/17 08:25 05/21/17 08:25 PT 10.5 SECONDS (9.7-12.2) 05/20/17 01:01 INR 0.9 05/20/17 01:01 APTT 25 SECONDS (21-34) 05/20/17 01:01 - Constitutional Appears: Non-toxic, No Acute Distress - Eye Exam Eye Exam: EOMI, Normal appearance Pupil Exam: PERRL - ENT Exam ENT Exam: Mucous Membranes Moist, Normal Exam - Respiratory Exam Respiratory Exam: Clear to Ausculation Bilateral, NORMAL BREATHING PATTERN - Cardiovascular Exam Cardiovascular Exam: REGULAR RHYTHM - GI/Abdominal Exam GI & Abdominal Exam: Soft, Tenderness (TTP in RUQ/epigastric), Normal Bowel Sounds - Extremities Exam Extremities Exam: Normal Inspection. absent: Pedal Edema, Tenderness - Back Exam Back Exam: absent: CVA tenderness (L), CVA tenderness (R) - Neurological Exam Neurological Exam: Alert, Awake, Oriented x3 - Psychiatric Exam Psychiatric exam: Normal Affect, Normal Mood - Skin Skin Exam: Dry, Normal Color, Warm Assessment and Plan - Assessment and Plan (Free Text) Plan: Abdominal pain Admit to med/surg Afebrile over course Leukocytosis with bandemia on admission, resolved Hx of recent UTI with outpatient treatment Hx of appendectomy/Hysterectomy US Abdomen (05/20/17): 1. No acute findings. 2. Hepatomegaly with increased echogenicity of the liver suggestive of hepatic steatosis. 3. Mild gallbladder distention without evidence of gallstones or biliary sludge. 4. Prominent pancreatic duct. CT A/P (05/20/17): No evidence of significant acute process. Appendix is not seen , however. - Enlarged, fatty liver. Lipase 108 Colonoscopy (2017): Colonic polyp. Dr. Monroy, GI is consultant, help appreciated - trial FLD - continue ABX - f/u stool studies, urine culture, Dr. Bridges, Surgical consult, help appreciated repeat CT abdomen/pelvis with PO contrast tomorrow if no improvement in symptoms Zosyn 3.375gm Q8H IV (start 05/20/17, Day 2) LR @ 100ml/hr Morphine 2mg IV Q4H PRN Elevated BG f/u A1C Elevated transaminases AST/ALT: mild elevated (49/55) Etiology: probable statin/fatty liver Non-bloody diarrhea O&P negative f/u stool culture, C diff Leukocytosis w bandemia, resolved 23.6 on admission, 7 neutrophils - WBC 9.7 today Hepatic Steatosis US Abdomen (05/20/17): 1. No acute findings. 2. Hepatomegaly with increased echogenicity of the liver suggestive of hepatic steatosis. Recent Treatment of UTI UA (05/20/17): negative LE, no WBCs, Negative nitrate - f/u urine culture - f/u C diff due to recent ABX usage HTN Well controlled - will hold home meds at this time Home meds are as follows: Losartan 50mg Daily Amlodipine 5mg Daily Hyperlipidemia Crestor 5mg PO HS (home Pravachol 20mg PO HS) Hematuria UA (05/20/17) 1+ blood - f/u repeat UA Tobacco Use Disorder Patient refused nicotine patch Electrolyte Abnormalty K 3.3 this AM, repleted Prophylaxis Lovenox 40mg SC Daily Protonix 40mg PO Daily [facility] All medical management per Dr. Stark <Alexis Stark S - Last Filed: 05/22/17 19:36> Objective - Vital Signs/Intake and Output Vital Signs (last 24 hours): Temp Pulse Resp BP Pulse Ox 97.6 F 77 20 130/76 97 05/22/17 07:45 05/22/17 07:45 05/22/17 07:45 05/22/17 07:45 05/22/17 07:45 Intake and Output: 05/22/17 05/23/17 18:59 06:59 Intake Total 1250 Balance 1250 - Labs Labs: 05/22/17 07:07 05/22/17 07:07 PT 10.5 SECONDS (9.7-12.2) 05/20/17 01:01 INR 0.9 05/20/17 01:01 APTT 25 SECONDS (21-34) 05/20/17 01:01 Attending/Attestation - Attestation I have personally seen and examined this patient.: Yes I have fully participated in the care of the patient.: Yes I have reviewed all pertinent clinical information, including history, physical exam and plan: Yes Notes (Text): 05/22/17 19:36 case seen and d.w staff and resident, concurred with finding and management..
--- NOTE | 2017-05-21 11:14 | CP.PCM.PN ---
<Rocio Stark - Last Filed: 05/21/17 11:14> Subjective - Date & Time of Evaluation Date of Evaluation: 05/21/17 Time of Evaluation: 06:45 - Subjective Subjective: PGY4 GI follow up Pt seen and examined bedside + abd pain in RUQ +diarrhea denies any fever, chills or diaphoresis ROS: 10 point ROS conducted, neg other than above Objective - Vital Signs/Intake and Output Vital Signs (last 24 hours): Temp Pulse Resp BP Pulse Ox 99 F 92 H 20 113/64 96 05/21/17 08:08 05/21/17 08:08 05/21/17 08:08 05/21/17 08:08 05/21/17 08:08 Intake and Output: 05/21/17 05/21/17 06:59 18:59 Intake Total 800 Balance 800 - Medications Medications: Current Medications Enoxaparin Sodium (Lovenox) 40 mg SC DAILY [facility] Last Admin: 05/21/17 09:21 Dose: 40 mg Lactated Ringer's (Lactated Ringer's) 1,000 mls @ 100 mls/hr IV .Q10H [facility] Last Admin: 05/21/17 06:33 Dose: 100 mls/hr Piperacillin Sod/Tazobactam (Sod 3.375 gm/ Sodium Chloride) 100 mls @ 200 mls/ hr IVPB Q8H [facility] PRN Reason: Protocol Last Admin: 05/21/17 08:30 Dose: 200 mls/hr Morphine Sulfate (Morphine) 2 mg IVP Q4 PRN PRN Reason: Pain, moderate (4-7) Last Admin: 05/21/17 06:31 Dose: 2 mg Ondansetron HCl (Zofran Inj) 4 mg IVP Q6H PRN PRN Reason: Nausea/Vomiting Pantoprazole Sodium (Protonix Ec Tab) 40 mg PO DAILY [facility] Last Admin: 05/21/17 09:21 Dose: 40 mg - Labs Labs: 05/21/17 08:25 05/21/17 08:25 PT 10.5 SECONDS (9.7-12.2) 05/20/17 01:01 INR 0.9 05/20/17 01:01 APTT 25 SECONDS (21-34) 05/20/17 01:01 - Constitutional Appears: Well, No Acute Distress - Head Exam Head Exam: ATRAUMATIC, NORMOCEPHALIC - Eye Exam Eye Exam: Normal appearance - ENT Exam ENT Exam: Mucous Membranes Moist - Neck Exam Neck Exam: Normal Inspection - Respiratory Exam Respiratory Exam: Clear to Ausculation Bilateral, NORMAL BREATHING PATTERN. absent: Rales, Rhonchi, Wheezes, Respiratory Distress - Cardiovascular Exam Cardiovascular Exam: REGULAR RHYTHM, +S1, +S2 - GI/Abdominal Exam GI & Abdominal Exam: Soft, Tenderness (epigastric), Normal Bowel Sounds. absent : Firm, Guarding, Rigid, Organomegaly - Extremities Exam Extremities Exam: absent: Joint Swelling, Pedal Edema - Neurological Exam Neurological Exam: Alert, Awake, Oriented x3 - Skin Skin Exam: Dry, Intact, Normal Color, Warm Assessment and Plan - Assessment and Plan (Free Text) Assessment: Ms. Brooks is a 71 Female with PMHx of HTN presents to the ED last night due to sharp abdominal pain, nausea, vomiting, and diarrhea that started 7PM last night. Recently treated with PO abx for 5 day course for UTI by her PMD. Colonoscopy performed in 2017, shortly after she had a surgery to remove a colonic polyp. Patient reports no abnormal findings. Abdominal pain Diarrhea - viral versus infectious versus secondary to recent antibiotic use HTN Plan: - continue FLD, will advance as tolerated - No evidence of colitis noted on CT Scan - Continue IVF, Abx, and pain control - Follow up stool studies -stool cultures pending - clinically only slightly impoved, continue supportive care DW Dr. Monroy, <Андрей Monroy - Last Filed: 05/21/17 13:03> Objective - Vital Signs/Intake and Output Vital Signs (last 24 hours): Temp Pulse Resp BP Pulse Ox 99 F 92 H 20 113/64 96 05/21/17 08:08 05/21/17 08:08 05/21/17 08:08 05/21/17 08:08 05/21/17 08:08 Intake and Output: 05/21/17 05/21/17 06:59 18:59 Intake Total 800 Balance 800 - Medications Medications: Current Medications Enoxaparin Sodium (Lovenox) 40 mg SC DAILY [facility] Last Admin: 05/21/17 09:21 Dose: 40 mg Lactated Ringer's (Lactated Ringer's) 1,000 mls @ 100 mls/hr IV .Q10H [facility] Last Admin: 05/21/17 06:33 Dose: 100 mls/hr Piperacillin Sod/Tazobactam (Sod 3.375 gm/ Sodium Chloride) 100 mls @ 200 mls/ hr IVPB Q8H [facility] PRN Reason: Protocol Last Admin: 05/21/17 08:30 Dose: 200 mls/hr Morphine Sulfate (Morphine) 2 mg IVP Q4 PRN PRN Reason: Pain, moderate (4-7) Last Admin: 05/21/17 06:31 Dose: 2 mg Ondansetron HCl (Zofran Inj) 4 mg IVP Q6H PRN PRN Reason: Nausea/Vomiting Pantoprazole Sodium (Protonix Ec Tab) 40 mg PO DAILY [facility] Last Admin: 05/21/17 09:21 Dose: 40 mg Pneumococcal Polyvalent Vaccine (Pneumovax 23 Vaccine) 0.5 ml IM .ONCE ONE Stop: 05/23/17 10:01 - Labs Labs: 05/21/17 08:25 05/21/17 08:25 PT 10.5 SECONDS (9.7-12.2) 05/20/17 01:01 INR 0.9 05/20/17 01:01 APTT 25 SECONDS (21-34) 05/20/17 01:01 Attending/Attestation - Attestation I have personally seen and examined this patient.: Yes I have fully participated in the care of the patient.: Yes I have reviewed all pertinent clinical information, including history, physical exam and plan: Yes Notes (Text): 05/21/17 12:59 I have seen and examined patient with GI fellow. No acute events overnight. She continues to endorse RUQ abdominal pain along with loose bowel movements. She denies nausea, vomiting, fever/chills. Tolerating PO liquids without difficulty. Review of vitals from today shows tachycardia. HTN Obesity Abdominal pain, diarrhea - gastroenteritis vs infectious colitis - Full liquid diet as tolerated - Continue with antibiotic therapy, consider adding flagyl for extended coverage - Awaiting results of stool studies - If symptoms persist despite conservative management, would consider repeat cross sectional imaging with PO contrast - Will continue to monitor patient clinical course
--- NOTE | 2017-05-21 14:55 | CP.PCM.PN ---
<Liss Puente - Last Filed: 05/21/17 14:52> Subjective - Date & Time of Evaluation Date of Evaluation: 05/21/17 Time of Evaluation: 08:00 - Subjective Subjective: Surgery: Dr. Bridges Pt seen and examined. No acute overnight events. States shes feeling better but continues to have diarrhea and abdominal pain. No longer vomiting. Denies F/C. Objective - Vital Signs/Intake and Output Vital Signs (last 24 hours): Temp Pulse Resp BP Pulse Ox 99 F 92 H 20 113/64 96 05/21/17 08:08 05/21/17 08:08 05/21/17 08:08 05/21/17 08:08 05/21/17 08:08 Intake and Output: 05/21/17 05/21/17 06:59 18:59 Intake Total 800 Balance 800 - Medications Medications: Current Medications Enoxaparin Sodium (Lovenox) 40 mg SC DAILY [facility] Last Admin: 05/21/17 09:21 Dose: 40 mg Lactated Ringer's (Lactated Ringer's) 1,000 mls @ 100 mls/hr IV .Q10H [facility] Last Admin: 05/21/17 06:33 Dose: 100 mls/hr Piperacillin Sod/Tazobactam (Sod 3.375 gm/ Sodium Chloride) 100 mls @ 200 mls/ hr IVPB Q8H [facility] PRN Reason: Protocol Last Admin: 05/21/17 08:30 Dose: 200 mls/hr Morphine Sulfate (Morphine) 2 mg IVP Q4 PRN PRN Reason: Pain, moderate (4-7) Last Admin: 05/21/17 06:31 Dose: 2 mg Ondansetron HCl (Zofran Inj) 4 mg IVP Q6H PRN PRN Reason: Nausea/Vomiting Pantoprazole Sodium (Protonix Ec Tab) 40 mg PO DAILY [facility] Last Admin: 05/21/17 09:21 Dose: 40 mg Pneumococcal Polyvalent Vaccine (Pneumovax 23 Vaccine) 0.5 ml IM .ONCE ONE Stop: 05/23/17 10:01 - Labs Labs: 05/21/17 08:25 05/21/17 08:25 PT 10.5 SECONDS (9.7-12.2) 05/20/17 01:01 INR 0.9 05/20/17 01:01 APTT 25 SECONDS (21-34) 05/20/17 01:01 - Constitutional Appears: Well, No Acute Distress - Eye Exam Eye Exam: Normal appearance - ENT Exam ENT Exam: Mucous Membranes Moist - Respiratory Exam Respiratory Exam: NORMAL BREATHING PATTERN - Cardiovascular Exam Cardiovascular Exam: RRR - GI/Abdominal Exam GI & Abdominal Exam: Soft, Tenderness (epigastric ). absent: Distended - Neurological Exam Neurological Exam: Alert, Awake - Skin Skin Exam: Dry, Warm Assessment and Plan - Assessment and Plan (Free Text) Assessment: 71F with non-specific abdominal pain & diarrhea Plan: - advance diet as tolerated - GI on board - repeat CT abdomen/pelvis with PO contrast tomorrow if no improvement in symptoms - d/w Dr. Yuliana Puente, PGY-3 <Tom Bridges - Last Filed: 05/21/17 21:02> Objective - Vital Signs/Intake and Output Vital Signs (last 24 hours): Temp Pulse Resp BP Pulse Ox 98.1 F 65 20 103/65 97 05/21/17 15:02 05/21/17 15:02 05/21/17 15:02 05/21/17 15:02 05/21/17 15:02 - Medications Medications: Current Medications Enoxaparin Sodium (Lovenox) 40 mg SC DAILY [facility] Last Admin: 05/21/17 09:21 Dose: 40 mg Lactated Ringer's (Lactated Ringer's) 1,000 mls @ 100 mls/hr IV .Q10H [facility] Last Admin: 05/21/17 06:33 Dose: 100 mls/hr Piperacillin Sod/Tazobactam (Sod 3.375 gm/ Sodium Chloride) 100 mls @ 200 mls/ hr IVPB Q8H [facility] PRN Reason: Protocol Last Admin: 05/21/17 17:49 Dose: 200 mls/hr Morphine Sulfate (Morphine) 2 mg IVP Q4 PRN PRN Reason: Pain, moderate (4-7) Last Admin: 05/21/17 06:31 Dose: 2 mg Ondansetron HCl (Zofran Inj) 4 mg IVP Q6H PRN PRN Reason: Nausea/Vomiting Pantoprazole Sodium (Protonix Ec Tab) 40 mg PO DAILY [facility] Last Admin: 05/21/17 09:21 Dose: 40 mg Pneumococcal Polyvalent Vaccine (Pneumovax 23 Vaccine) 0.5 ml IM .ONCE ONE Stop: 05/23/17 10:01 Rosuvastatin Calcium (Crestor) 2.5 mg PO HS [facility] - Labs Labs: 05/21/17 08:25 05/21/17 08:25 PT 10.5 SECONDS (9.7-12.2) 05/20/17 01:01 INR 0.9 05/20/17 01:01 APTT 25 SECONDS (21-34) 05/20/17 01:01 Attending/Attestation - Attestation I have personally seen and examined this patient.: Yes I have fully participated in the care of the patient.: Yes I have reviewed all pertinent clinical information, including history, physical exam and plan: Yes Notes (Text): Pt was seen and examined at bedside Agree with above note and assessment Pt is improving. Still has diarrhea Possible Colitis WBC is normal today Repeat labs in am GI f.u Plan d.w pt in detail
--- NOTE | 2017-05-21 17:46 | CP.PCM.PN ---
Subjective - Date & Time of Evaluation Date of Evaluation: 05/21/17 Time of Evaluation: 09:20 - Subjective Subjective: clinically same Objective - Vital Signs/Intake and Output Vital Signs (last 24 hours): Temp Pulse Resp BP Pulse Ox 98.1 F 65 20 103/65 97 05/21/17 15:02 05/21/17 15:02 05/21/17 15:02 05/21/17 15:02 05/21/17 15:02 Intake and Output: 05/21/17 05/21/17 06:59 18:59 Intake Total 800 Balance 800 - Medications Medications: Current Medications Enoxaparin Sodium (Lovenox) 40 mg SC DAILY [facility] Last Admin: 05/21/17 09:21 Dose: 40 mg Lactated Ringer's (Lactated Ringer's) 1,000 mls @ 100 mls/hr IV .Q10H [facility] Last Admin: 05/21/17 06:33 Dose: 100 mls/hr Piperacillin Sod/Tazobactam (Sod 3.375 gm/ Sodium Chloride) 100 mls @ 200 mls/ hr IVPB Q8H [facility] PRN Reason: Protocol Last Admin: 05/21/17 08:30 Dose: 200 mls/hr Morphine Sulfate (Morphine) 2 mg IVP Q4 PRN PRN Reason: Pain, moderate (4-7) Last Admin: 05/21/17 06:31 Dose: 2 mg Ondansetron HCl (Zofran Inj) 4 mg IVP Q6H PRN PRN Reason: Nausea/Vomiting Pantoprazole Sodium (Protonix Ec Tab) 40 mg PO DAILY [facility] Last Admin: 05/21/17 09:21 Dose: 40 mg Pneumococcal Polyvalent Vaccine (Pneumovax 23 Vaccine) 0.5 ml IM .ONCE ONE Stop: 05/23/17 10:01 - Labs Labs: 05/21/17 08:25 05/21/17 08:25 PT 10.5 SECONDS (9.7-12.2) 05/20/17 01:01 INR 0.9 05/20/17 01:01 APTT 25 SECONDS (21-34) 05/20/17 01:01 - Constitutional Appears: Well - Head Exam Head Exam: ATRAUMATIC, NORMAL INSPECTION, NORMOCEPHALIC - Eye Exam Eye Exam: EOMI, Normal appearance, PERRL Pupil Exam: NORMAL ACCOMODATION, PERRL - ENT Exam ENT Exam: Mucous Membranes Moist, Normal Exam - Neck Exam Neck Exam: Full ROM, Normal Inspection. absent: Lymphadenopathy - Respiratory Exam Respiratory Exam: Decreased Breath Sounds - Cardiovascular Exam Cardiovascular Exam: REGULAR RHYTHM, +S1, +S2 - GI/Abdominal Exam GI & Abdominal Exam: Soft, Diminished Bowel Sounds - Rectal Exam Rectal Exam: Deferred Assessment and Plan - Assessment and Plan (Free Text) Plan: Abdominal pain Admit to med/surg Afebrile over course Leukocytosis with bandemia on admission, resolved Hx of recent UTI with outpatient treatment Hx of appendectomy/Hysterectomy US Abdomen (05/20/17): 1. No acute findings. 2. Hepatomegaly with increased echogenicity of the liver suggestive of hepatic steatosis. 3. Mild gallbladder distention without evidence of gallstones or biliary sludge. 4. Prominent pancreatic duct. CT A/P (05/20/17): No evidence of significant acute process. Appendix is not seen , however. - Enlarged, fatty liver. Lipase 108 Colonoscopy (2017): Colonic polyp. Dr. Monroy, GI analysis consultant, help appreciated - trial FLD - continue ABX - f/u stool studies, urine culture, Dr. Bridges, Surgical consult, help appreciated repeat CT abdomen/pelvis with PO contrast tomorrow if no improvement in symptoms Zosyn 3.375gm Q8H IV (start 05/20/17, Day 2) LR @ 100ml/hr Morphine 2mg IV Q4H PRN Elevated BG f/u A1C Elevated transaminases AST/ALT: mild elevated (49/55) Etiology: probable statin/fatty liver Non-bloody diarrhea O&P negative f/u stool culture, C diff Leukocytosis w bandemia, resolved 23.6 on admission, 7 neutrophils - WBC 9.7 today Hepatic Steatosis US Abdomen (05/20/17): 1. No acute findings. 2. Hepatomegaly with increased echogenicity of the liver suggestive of hepatic steatosis. Recent Treatment of UTI UA (05/20/17): negative LE, no WBCs, Negative nitrate - f/u urine culture - f/u C diff due to recent ABX usage HTN Well controlled - will hold home meds at this time Home meds are as follows: Losartan 50mg Daily Amlodipine 5mg Daily Hyperlipidemia Crestor 5mg PO HS (home Pravachol 20mg PO HS) Hematuria UA (05/20/17) 1+ blood - f/u repeat UA Tobacco Use Disorder Patient refused nicotine patch Electrolyte Abnormalty K 3.3 this AM, repleted Prophylaxis Lovenox 40mg SC Daily Protonix 40mg PO Daily SCD[facility] case seen and d.w staff for discharge today
[2017-05-22] MEDS: Piperacillin/Tazobact 3.375 GM in Sodium Chloride 100 ML IVPB SCH ×2 (01:18→07:59)
[2017-05-22 07:32] LABS: BASO % 0.4 % (0.0-2.0); EOS # 0.5 K/uL (0.0-0.7); EOS % 7.9 % (0.0-4.0); HEMOGLOBIN 12.4 g/dL (11.0-16.0); LYMPH # 2.6 K/uL (1.0-4.3); MEAN CELL VOLUME 90.7 fL (81.0-99.0); MEAN CORPUSCULAR HEMOGLOBIN 30.8 pg (27.0-31.0); MEAN PLATELET VOLUME 12.4 fL (7.2-11.7); MONO # 0.6 K/uL (0.0-0.8); NEUT % 43.7 % (50.0-75.0); NRBC % 0.1 % (0.0-2.0); RBC 4.04 Mil/uL (3.80-5.20); RED CELL DISTRIBUTION WIDTH 13.7 % (11.5-14.5); WHITE BLOOD COUNT 6.8 K/uL (4.8-10.8)
--- NOTE | 2017-05-22 07:32 | CP.PCM.PN ---
<Christelle Swain - Last Filed: 05/22/17 09:37> Subjective - Date & Time of Evaluation Date of Evaluation: 05/22/17 Time of Evaluation: 07:00 - Subjective Subjective: Gastroenterology Follow Up Patient was seen and examined at bedside. Patient reports she has abdominal pain after eating her FLD. Denied any nausea or vomiting. Admitted to mild abdominal pain, much improved since admission. She had 6 episodes of diarrhea over 24 hours, nonbloody. Objective - Vital Signs/Intake and Output Vital Signs (last 24 hours): Temp Pulse Resp BP Pulse Ox 98.1 F 75 20 111/70 96 05/22/17 00:00 05/22/17 00:00 05/22/17 00:00 05/22/17 00:00 05/22/17 00:00 Intake and Output: 05/22/17 05/22/17 06:59 18:59 Intake Total 1950 Output Total 600 Balance 1350 - Medications Medications: Current Medications Enoxaparin Sodium (Lovenox) 40 mg SC DAILY [facility] Last Admin: 05/21/17 09:21 Dose: 40 mg Lactated Ringer's (Lactated Ringer's) 1,000 mls @ 100 mls/hr IV .Q10H [facility] Last Admin: 05/21/17 22:18 Dose: 100 mls/hr Piperacillin Sod/Tazobactam (Sod 3.375 gm/ Sodium Chloride) 100 mls @ 200 mls/ hr IVPB Q8H [facility] PRN Reason: Protocol Last Admin: 05/22/17 01:18 Dose: 200 mls/hr Morphine Sulfate (Morphine) 2 mg IVP Q4 PRN PRN Reason: Pain, moderate (4-7) Last Admin: 05/21/17 06:31 Dose: 2 mg Ondansetron HCl (Zofran Inj) 4 mg IVP Q6H PRN PRN Reason: Nausea/Vomiting Pantoprazole Sodium (Protonix Ec Tab) 40 mg PO DAILY [facility] Last Admin: 05/21/17 09:21 Dose: 40 mg Pneumococcal Polyvalent Vaccine (Pneumovax 23 Vaccine) 0.5 ml IM .ONCE ONE Stop: 05/23/17 10:01 Rosuvastatin Calcium (Crestor) 2.5 mg PO HS [facility] - Labs Labs: 05/21/17 08:25 05/21/17 08:25 PT 10.5 SECONDS (9.7-12.2) 05/20/17 01:01 INR 0.9 05/20/17 01:01 APTT 25 SECONDS (21-34) 05/20/17 01:01 - Constitutional Appears: No Acute Distress - Head Exam Head Exam: NORMAL INSPECTION, NORMOCEPHALIC - Eye Exam Eye Exam: EOMI, Normal appearance, PERRL Pupil Exam: NORMAL ACCOMODATION - ENT Exam ENT Exam: Mucous Membranes Moist - Respiratory Exam Respiratory Exam: Clear to Ausculation Bilateral, NORMAL BREATHING PATTERN - Cardiovascular Exam Cardiovascular Exam: REGULAR RHYTHM - GI/Abdominal Exam GI & Abdominal Exam: Soft, Tenderness (RUQ, EPIGASTRIC ), Normal Bowel Sounds. absent: Distended, Organomegaly - Rectal Exam Rectal Exam: Deferred - Extremities Exam Extremities Exam: Normal Inspection. absent: Pedal Edema, Tenderness - Neurological Exam Neurological Exam: Alert, Awake, Oriented x3 - Psychiatric Exam Psychiatric exam: Normal Affect, Normal Mood - Skin Skin Exam: Dry, Intact, Normal Color, Warm Assessment and Plan - Assessment and Plan (Free Text) Assessment: Ms. Brooks is a 71 Female with PMHx of HTN presents to the ED last night due to sharp abdominal pain, nausea, vomiting, and diarrhea that started 7PM on 05/20/17. Recently treated with PO abx for 5 day course for UTI by her PMD. Colonoscopy performed in 2017, shortly after she had a surgery to remove a colonic polyp. Patient reports no abnormal findings. HTN Obesity Abdominal pain, diarrhea - gastroenteritis vs infectious colitis Plan: - Advanced to low residue diet - Stool studies negative - Continue with antibiotic therapy, switch to PO if clinically improving - Continue with supportive care, IVF hydration, anti-emetic therapy PRN - Will continue to monitor patient clinical course DW Christelle Sheffield DO, PGY-1 <Андрей Monroy - Last Filed: 05/22/17 09:57> Objective - Vital Signs/Intake and Output Vital Signs (last 24 hours): Temp Pulse Resp BP Pulse Ox 97.6 F 77 20 130/76 97 05/22/17 07:45 05/22/17 07:45 05/22/17 07:45 05/22/17 07:45 05/22/17 07:45 Intake and Output: 05/22/17 05/22/17 06:59 18:59 Intake Total 1950 Output Total 600 Balance 1350 - Medications Medications: Current Medications Enoxaparin Sodium (Lovenox) 40 mg SC DAILY [facility] Last Admin: 05/22/17 09:51 Dose: 40 mg Lactated Ringer's (Lactated Ringer's) 1,000 mls @ 100 mls/hr IV .Q10H [facility] Last Admin: 05/22/17 09:52 Dose: Not Given Piperacillin Sod/Tazobactam (Sod 3.375 gm/ Sodium Chloride) 100 mls @ 200 mls/ hr IVPB Q8H [facility] PRN Reason: Protocol Last Admin: 05/22/17 07:59 Dose: 200 mls/hr Metronidazole (Flagyl) 500 mg in 100 mls @ 100 mls/hr IVPB Q8H [facility] PRN Reason: Protocol Last Admin: 05/22/17 09:52 Dose: 100 mls/hr Morphine Sulfate (Morphine) 2 mg IVP Q4 PRN PRN Reason: Pain, moderate (4-7) Last Admin: 05/21/17 06:31 Dose: 2 mg Ondansetron HCl (Zofran Inj) 4 mg IVP Q6H PRN PRN Reason: Nausea/Vomiting Pantoprazole Sodium (Protonix Ec Tab) 40 mg PO DAILY [facility] Last Admin: 05/22/17 09:52 Dose: 40 mg Pneumococcal Polyvalent Vaccine (Pneumovax 23 Vaccine) 0.5 ml IM .ONCE ONE Stop: 05/23/17 10:01 Rosuvastatin Calcium (Crestor) 2.5 mg PO HS [facility] - Labs Labs: 05/22/17 07:07 05/22/17 07:07 PT 10.5 SECONDS (9.7-12.2) 05/20/17 01:01 INR 0.9 05/20/17 01:01 APTT 25 SECONDS (21-34) 05/20/17 01:01 Attending/Attestation - Attestation I have personally seen and examined this patient.: Yes I have fully participated in the care of the patient.: Yes I have reviewed all pertinent clinical information, including history, physical exam and plan: Yes Notes (Text): 05/22/17 09:54 I have seen and examined patient with GI fellow and medical numerical control operator. No acute events overnight, her abdominal pain continues to improve though she notes ongoing loose bowel movements. She denies nausea, vomiting, fever/chills. Tolerating PO liquid diet without difficulty. Review of vitals from today are normal. 12 point review of systems performed, negative aside from mentioned above. HTN Obesity Abdominal pain, diarrhea - likely gastroenteritis, resolving - Advance diet as tolerated - Continue with antibiotic therapy, flagyl added for extended coverage - Continue with supportive care, no clinical indication for repeat imaging at this time - If patient tolerating diet, can likely be discharged home with subsequent outpatient follow up. Will continue to monitor patient clinical course.
--- NOTE | 2017-05-22 07:37 | CP.PCM.PN ---
<Tk Orr - Last Filed: 05/22/17 14:56> Subjective - Date & Time of Evaluation Date of Evaluation: 05/22/17 Time of Evaluation: 07:36 - Subjective Subjective: PGY-[address] Stark's service: Pt seen and examined at bedside. Nursing reports no acute events overnight. Patient reports multiple episodes of diarrhea this AM, but reports overall improved abdominal pain. Denies n/v, fever, or chills. Spoke with patient at length, using interpretation services, regarding need to follow up with DR. Stark, her PMD, about elevated A1C level. Education given to patient about diet/ exercise and long-term sequelae of hyperglycemia to heart/kidneys/eyes/nerves. Patient agrees to see Dr. Stark in his office tomorrow, , to begin follow up. Objective - Vital Signs/Intake and Output Vital Signs (last 24 hours): Temp Pulse Resp BP Pulse Ox 98.1 F 75 20 111/70 96 05/22/17 00:00 05/22/17 00:00 05/22/17 00:00 05/22/17 00:00 05/22/17 00:00 Intake and Output: 05/22/17 05/22/17 06:59 18:59 Intake Total 1950 Output Total 600 Balance 1350 - Medications Medications: Current Medications Enoxaparin Sodium (Lovenox) 40 mg SC DAILY [facility] Last Admin: 05/21/17 09:21 Dose: 40 mg Lactated Ringer's (Lactated Ringer's) 1,000 mls @ 100 mls/hr IV .Q10H [facility] Last Admin: 05/21/17 22:18 Dose: 100 mls/hr Piperacillin Sod/Tazobactam (Sod 3.375 gm/ Sodium Chloride) 100 mls @ 200 mls/ hr IVPB Q8H [facility] PRN Reason: Protocol Last Admin: 05/22/17 01:18 Dose: 200 mls/hr Morphine Sulfate (Morphine) 2 mg IVP Q4 PRN PRN Reason: Pain, moderate (4-7) Last Admin: 05/21/17 06:31 Dose: 2 mg Ondansetron HCl (Zofran Inj) 4 mg IVP Q6H PRN PRN Reason: Nausea/Vomiting Pantoprazole Sodium (Protonix Ec Tab) 40 mg PO DAILY [facility] Last Admin: 05/21/17 09:21 Dose: 40 mg Pneumococcal Polyvalent Vaccine (Pneumovax 23 Vaccine) 0.5 ml IM .ONCE ONE Stop: 05/23/17 10:01 Rosuvastatin Calcium (Crestor) 2.5 mg PO HS [facility] - Labs Labs: 05/22/17 07:07 05/21/17 08:25 PT 10.5 SECONDS (9.7-12.2) 05/20/17 01:01 INR 0.9 05/20/17 01:01 APTT 25 SECONDS (21-34) 05/20/17 01:01 - Additional Findings Additional findings: - Constitutional Appears: No Acute Distress - Head Exam Head Exam: NORMAL INSPECTION, NORMOCEPHALIC - Eye Exam Eye Exam: EOMI, Normal appearance, PERRL Pupil Exam: NORMAL ACCOMODATION - ENT Exam ENT Exam: Mucous Membranes Moist - Respiratory Exam Respiratory Exam: Clear to Ausculation Bilateral, NORMAL BREATHING PATTERN - Cardiovascular Exam Cardiovascular Exam: REGULAR RHYTHM - GI/Abdominal Exam GI & Abdominal Exam: Soft, Tenderness (minimal epigastric/RUQ ), Normal Bowel Sounds. absent: Distended, Organomegaly - Rectal Exam Rectal Exam: Deferred - Extremities Exam Extremities Exam: Normal Inspection. absent: Pedal Edema, Tenderness - Neurological Exam Neurological Exam: Alert, Awake, Oriented x3 - Psychiatric Exam Psychiatric exam: Normal Affect, Normal Mood - Skin Skin Exam: Dry, Intact, Normal Color, Warm Assessment and Plan - Assessment and Plan (Free Text) Plan: Abdominal pain Admit to med/surg Afebrile over course Leukocytosis with bandemia on admission, resolved Hx of recent UTI with outpatient treatment Hx of appendectomy/Hysterectomy US Abdomen (05/20/17): 1. No acute findings. 2. Hepatomegaly with increased echogenicity of the liver suggestive of hepatic steatosis. 3. Mild gallbladder distention without evidence of gallstones or biliary sludge. 4. Prominent pancreatic duct. CT A/P (05/20/17): No evidence of significant acute process. Appendix is not seen , however. - Enlarged, fatty liver. Lipase 108 Colonoscopy (2017): Colonic polyp. Dr. Monroy, GI residential property consultant, help appreciated - Advance to low residue diet - continue Flagyl, convert to PO if tolerated - can follow up as outpatient Dr. Bridges, Surgical consult, help appreciated - no intervention needed by surgery Zosyn 3.375gm Q8H IV (start 05/20/17, Day 3) Flagyl 500mg IV Q8H (start 05/21/17, Day 1) LR @ 100ml/hr Morphine 2mg IV Q4H PRN Non-bloody diarrhea O&P negative C diff negative stool culture negative Elevated A1C A1C: 6.9 - Pt not previously aware of elevated blood glucose - will need follow up as outpatient, 2nd elevated A1C diagnoses diabetes Elevated transaminases AST/ALT: mild elevated (49/55) Etiology: probable statin/fatty liver Leukocytosis w bandemia, resolved 23.6 on admission, 7 neutrophils - WBC 6.7 today Hepatic Steatosis US Abdomen (05/20/17): 1. No acute findings. 2. Hepatomegaly with increased echogenicity of the liver suggestive of hepatic steatosis. Recent Treatment of UTI UA (05/20/17): negative LE, no WBCs, Negative nitrate Urine culture - no growth C diff negative (ordered due to recent ABX usage) HTN Well controlled - will hold home meds at this time Home meds are as follows: Losartan 50mg Daily Amlodipine 5mg Daily Hyperlipidemia Crestor 2.5 mg PO HS (home Pravachol 20mg PO HS) Hematuria UA (05/20/17) 1+ blood - f/u repeat UA Tobacco Use Disorder Patient refused nicotine patch Electrolyte Abnormalty K 3.5 this AM, repleted Prophylaxis Lovenox 40mg SC Daily Protonix 40mg PO Daily [facility] All medical management per Dr. Stark <Alexis Stark S - Last Filed: 05/22/17 19:31> Objective - Vital Signs/Intake and Output Vital Signs (last 24 hours): Temp Pulse Resp BP Pulse Ox 97.6 F 77 20 130/76 97 05/22/17 07:45 05/22/17 07:45 05/22/17 07:45 05/22/17 07:45 05/22/17 07:45 Intake and Output: 05/22/17 05/23/17 18:59 06:59 Intake Total 1250 Balance 1250 - Labs Labs: 05/22/17 07:07 05/22/17 07:07 PT 10.5 SECONDS (9.7-12.2) 05/20/17 01:01 INR 0.9 05/20/17 01:01 APTT 25 SECONDS (21-34) 05/20/17 01:01 Attending/Attestation - Attestation I have personally seen and examined this patient.: Yes I have fully participated in the care of the patient.: Yes I have reviewed all pertinent clinical information, including history, physical exam and plan: Yes Notes (Text): case seen and /w staff and resident as noted
[2017-05-22 07:49] VITALS: BP 130/76; PULSE 77; TEMP 97.6; O2SAT 97
[2017-05-22 08:39] LABS: ALB/GLOB RATIO 1.2 (1.0-2.1); ALBUMIN 3.5 g/dL (3.5-5.0); ALT/SGPT 62 U/L (9-52); AST/SGOT 53 U/L (14-36); BLOOD UREA NITROGEN 7 mg/dL (7-17); CALCIUM 8.8 mg/dl (8.6-10.4); GFR AFRICAN-AMERICAN > 60; GFR NON-AFRICAN AMERICAN > 60
[2017-05-22] MEDS ORDERED: metroNIDAZOLE IV 500 mg/100 ml 500 MG/100 ML BAG IVPB SCH (09:00)
[2017-05-22] MEDS: Enoxaparin 60 mg Syringe SC SCH (09:51)
[2017-05-22] MEDS: Lactated Ringer's 1,000 ML IV SCH (09:52)
[2017-05-22] MEDS: Pantoprazole 40 mg EC Tab PO SCH (09:52)
[2017-05-22] MEDS: Potassium Chloride 20 mEq ER Tab PO SCH ×2 (10:22→12:16)
--- NOTE | 2017-05-22 13:03 | CP.PCM.PN ---
Subjective - Date & Time of Evaluation Date of Evaluation: 05/22/17 Time of Evaluation: 08:20 - Subjective Subjective: clinically same Objective - Vital Signs/Intake and Output Vital Signs (last 24 hours): Temp Pulse Resp BP Pulse Ox 97.6 F 77 20 130/76 97 05/22/17 07:45 05/22/17 07:45 05/22/17 07:45 05/22/17 07:45 05/22/17 07:45 Intake and Output: 05/22/17 05/22/17 06:59 18:59 Intake Total 1950 Output Total 600 Balance 1350 - Medications Medications: Current Medications Enoxaparin Sodium (Lovenox) 40 mg SC DAILY [facility] Last Admin: 05/22/17 09:51 Dose: 40 mg Lactated Ringer's (Lactated Ringer's) 1,000 mls @ 100 mls/hr IV .Q10H [facility] Last Admin: 05/22/17 09:52 Dose: Not Given Piperacillin Sod/Tazobactam (Sod 3.375 gm/ Sodium Chloride) 100 mls @ 200 mls/ hr IVPB Q8H [facility] PRN Reason: Protocol Last Admin: 05/22/17 07:59 Dose: 200 mls/hr Metronidazole (Flagyl) 500 mg in 100 mls @ 100 mls/hr IVPB Q8H [facility] PRN Reason: Protocol Last Admin: 05/22/17 09:52 Dose: 100 mls/hr Morphine Sulfate (Morphine) 2 mg IVP Q4 PRN PRN Reason: Pain, moderate (4-7) Last Admin: 05/21/17 06:31 Dose: 2 mg Ondansetron HCl (Zofran Inj) 4 mg IVP Q6H PRN PRN Reason: Nausea/Vomiting Pantoprazole Sodium (Protonix Ec Tab) 40 mg PO DAILY [facility] Last Admin: 05/22/17 09:52 Dose: 40 mg Pneumococcal Polyvalent Vaccine (Pneumovax 23 Vaccine) 0.5 ml IM .ONCE ONE Stop: 05/23/17 10:01 Rosuvastatin Calcium (Crestor) 2.5 mg PO HS [facility] - Labs Labs: 05/22/17 07:07 05/22/17 07:07 PT 10.5 SECONDS (9.7-12.2) 05/20/17 01:01 INR 0.9 05/20/17 01:01 APTT 25 SECONDS (21-34) 05/20/17 01:01 - Constitutional Appears: Well - Head Exam Head Exam: ATRAUMATIC, NORMAL INSPECTION, NORMOCEPHALIC - Eye Exam Eye Exam: EOMI, Normal appearance, PERRL Pupil Exam: NORMAL ACCOMODATION, PERRL - ENT Exam ENT Exam: Mucous Membranes Moist, Normal Exam - Neck Exam Neck Exam: Full ROM, Normal Inspection. absent: Lymphadenopathy - Respiratory Exam Respiratory Exam: Decreased Breath Sounds - Cardiovascular Exam Cardiovascular Exam: REGULAR RHYTHM, +S1, +S2 - GI/Abdominal Exam GI & Abdominal Exam: Soft, Diminished Bowel Sounds - Rectal Exam Rectal Exam: Deferred Assessment and Plan - Assessment and Plan (Free Text) Plan: bdominal pain Admit to med/surg Afebrile over course Leukocytosis with bandemia on admission, resolved Hx of recent UTI with outpatient treatment Hx of appendectomy/Hysterectomy US Abdomen (05/20/17): 1. No acute findings. 2. Hepatomegaly with increased echogenicity of the liver suggestive of hepatic steatosis. 3. Mild gallbladder distention without evidence of gallstones or biliary sludge. 4. Prominent pancreatic duct. CT A/P (05/20/17): No evidence of significant acute process. Appendix is not seen , however. - Enlarged, fatty liver. Lipase 108 Colonoscopy (2017): Colonic polyp. Dr. Monroy, GI distributed energy systems consultant, help appreciated - Advance to low residue diet - continue Flagyl, convert to PO if tolerated - can follow up as outpatient Dr. Bridges, Surgical consult, help appreciated - no intervention needed by surgery Zosyn 3.375gm Q8H IV (start 05/20/17, Day 3) Flagyl 500mg IV Q8H (start 05/21/17, Day 1) LR @ 100ml/hr Morphine 2mg IV Q4H PRN Non-bloody diarrhea O&P negative C diff negative stool culture negative Elevated A1C A1C: 6.9 - Pt not previously aware of elevated blood glucose - will need follow up as outpatient, 2nd elevated A1C diagnoses diabetes Elevated transaminases AST/ALT: mild elevated (49/55) Etiology: probable statin/fatty liver Leukocytosis w bandemia, resolved 23.6 on admission, 7 neutrophils - WBC 6.7 today Hepatic Steatosis US Abdomen (05/20/17): 1. No acute findings. 2. Hepatomegaly with increased echogenicity of the liver suggestive of hepatic steatosis. Recent Treatment of UTI UA (05/20/17): negative LE, no WBCs, Negative nitrate Urine culture - no growth C diff negative (ordered due to recent ABX usage) HTN Well controlled - will hold home meds at this time Home meds are as follows: Losartan 50mg Daily Amlodipine 5mg Daily Hyperlipidemia Crestor 2.5 mg PO HS (home Pravachol 20mg PO HS) Hematuria UA (05/20/17) 1+ blood - f/u repeat UA Tobacco Use Disorder Patient refused nicotine patch Electrolyte Abnormalty K 3.5 this AM, repleted Prophylaxis Lovenox 40mg SC Daily Protonix 40mg PO Daily [facility]
--- NOTE | 2017-05-22 13:42 | CP.PCM.PN ---
Subjective - Date & Time of Evaluation Date of Evaluation: 05/22/17 Time of Evaluation: 06:55 - Subjective Subjective: Surgery Progress note. Dr. Bridges Pt seen and examined at bedside. No acute events overnight. Still reports diarrhea x6 episodes yesterday. Mild epigastric, RUQ tenderness soon after any PO intake. No F/C. Objective - Vital Signs/Intake and Output Vital Signs (last 24 hours): Temp Pulse Resp BP Pulse Ox 97.6 F 77 20 130/76 97 05/22/17 07:45 05/22/17 07:45 05/22/17 07:45 05/22/17 07:45 05/22/17 07:45 Intake and Output: 05/22/17 05/22/17 06:59 18:59 Intake Total 1950 Output Total 600 Balance 1350 - Medications Medications: Current Medications Enoxaparin Sodium (Lovenox) 40 mg SC DAILY [facility] Last Admin: 05/22/17 09:51 Dose: 40 mg Lactated Ringer's (Lactated Ringer's) 1,000 mls @ 100 mls/hr IV .Q10H [facility] Last Admin: 05/22/17 09:52 Dose: Not Given Piperacillin Sod/Tazobactam (Sod 3.375 gm/ Sodium Chloride) 100 mls @ 200 mls/ hr IVPB Q8H [facility] PRN Reason: Protocol Last Admin: 05/22/17 07:59 Dose: 200 mls/hr Metronidazole (Flagyl) 500 mg in 100 mls @ 100 mls/hr IVPB Q8H [facility] PRN Reason: Protocol Last Admin: 05/22/17 09:52 Dose: 100 mls/hr Morphine Sulfate (Morphine) 2 mg IVP Q4 PRN PRN Reason: Pain, moderate (4-7) Last Admin: 05/21/17 06:31 Dose: 2 mg Ondansetron HCl (Zofran Inj) 4 mg IVP Q6H PRN PRN Reason: Nausea/Vomiting Pantoprazole Sodium (Protonix Ec Tab) 40 mg PO DAILY [facility] Last Admin: 05/22/17 09:52 Dose: 40 mg Pneumococcal Polyvalent Vaccine (Pneumovax 23 Vaccine) 0.5 ml IM .ONCE ONE Stop: 05/23/17 10:01 Rosuvastatin Calcium (Crestor) 2.5 mg PO HS [facility] - Labs Labs: 05/22/17 07:07 05/22/17 07:07 PT 10.5 SECONDS (9.7-12.2) 05/20/17 01:01 INR 0.9 05/20/17 01:01 APTT 25 SECONDS (21-34) 05/20/17 01:01 - Constitutional Appears: Well, Non-toxic, No Acute Distress - Head Exam Head Exam: ATRAUMATIC, NORMAL INSPECTION, NORMOCEPHALIC - Eye Exam Eye Exam: EOMI, Normal appearance - ENT Exam ENT Exam: Mucous Membranes Moist - Respiratory Exam Respiratory Exam: NORMAL BREATHING PATTERN. absent: Accessory Muscle Use, Respiratory Distress - Cardiovascular Exam Cardiovascular Exam: RRR. absent: JVD - GI/Abdominal Exam GI & Abdominal Exam: Soft, Tenderness (RUQ and epigastric tenderness). absent: Distended, Firm, Guarding, Rigid, Rebound - Extremities Exam Extremities Exam: Normal Inspection. absent: Calf Tenderness - Neurological Exam Neurological Exam: Alert, Awake, Oriented x3 - Psychiatric Exam Psychiatric exam: Normal Affect, Normal Mood - Skin Skin Exam: Dry, Intact, Normal Color, Warm Assessment and Plan - Assessment and Plan (Free Text) Assessment: 71yo F with abdominal pain and diarrhea Plan: - No planned surgical intervention at this time - f/u GI recs - Diet as per GI - Agree with continuing Abx Further recs as per Dr. Yuliana Murray PGY1 surgery pager: [phone]
[2017-05-22] MEDS ORDERED: Pneumococcal 23-Valent Vaccine IM ONE (16:45)
[2017-05-22] MEDS ORDERED: Influenza Vaccine 60 mcg/0.5 mL SYR (4YR UP) IM ONE (16:45)
[2017-05-22] MEDS ORDERED: Rosuvastatin Calcium 2.5 mg Tab PO SCH (22:00)
== END 2017-05-22 17:20 | disposition home or self-care (01) | DRG 321 ==
LOC: C.ER 00:10 → C.3T 05:00
PROVIDERS: ADMIT Internal Medicine Nephrology; ATTEND Internal Medicine Nephrology
DX: N39.0 Urinary tract infection, site not specified (principal); K76.89 Other specified diseases of liver; E66.9 Obesity, unspecified; E78.00 Pure hypercholesterolemia, unspecified; I10 Essential (primary) hypertension; K52.9 Noninfective gastroenteritis and colitis, unspecified; Z87.891 Personal history of nicotine dependence